=== PATIENT | male | born 1955 | race Caucasian/White ===

== ENCOUNTER 2016-11-26 10:42 | Emergency (ER) | payer MEDICARE, OTHER ==
[~2016-11-26] VITALS: Ht 167.6 cm; Wt 68.0 kg
[2016-11-26 12:04] LABS: BASOPHILS % 0.4 % (0.0-2.0); EOSINOPHILS % 1.1 % (0.0-5.0); HEMATOCRIT. 39.6 % (42.0-52.0); HEMOGLOBIN. 13.6 g/dL (14.0-18.0); LYMPHOCYTES % 14.2 % (20.0-50.0); MEAN CORPUSCULAR HEMOGLOBIN 29.7 pg (28.0-32.0); MEAN CORPUSCULAR VOLUME 86.5 fL (80.0-94.0); MEAN PLATELET VOLUME 7.2 fl (7.4-10.4); MONOCYTES % 6.3 % (2.0-8.0); PLATELET 218 x1000/uL (130-400); RED BLOOD CELL COUNT 4.58 mill/uL (4.7-6.1)
[2016-11-26 12:11] LABS: CARBON DIOXIDE 27 mEq/L (21-32); CHLORIDE 109 mEq/L (98-107)
[2016-11-26 14:00] VITALS: BP 120/76
== END 2016-11-26 14:48 | disposition home or self-care (01) ==
LOC: ER 10:42
DX: L03.116 Cellulitis of left lower limb (principal); I10 Essential (primary) hypertension; Z85.9 Personal history of malignant neoplasm, unspecified; Z98.890 Other specified postprocedural states
CPT/HCPCS: 36415; 80048; 85025; 93971; 99285

== ENCOUNTER 2018-05-03 07:30 | Emergency (ER) | payer MEDICARE, OTHER ==
[~2018-05-03] VITALS: Ht 167.6 cm; Wt 82.0 kg
[2018-05-03 10:18] LABS: BASOPHILS % 0.2 % (0.0-2.0); EOSINOPHILS % 1.4 % (0.0-5.0); HEMATOCRIT. 35.9 % (42.0-52.0); LYMPHOCYTES % 15.5 % (20.0-50.0); MEAN CORPUSCULAR VOLUME 83.7 fL (80.0-94.0); MEAN PLATELET VOLUME 6.5 fl (7.4-10.4); MONOCYTES % 7.6 % (2.0-8.0); NEUTROPHILS % 75.3 % (40.0-76.0); PLATELET 284 x1000/uL (130-400); RED BLOOD CELL COUNT 4.29 mill/uL (4.7-6.1); RED CELL DISTRIBUTION WIDTH 13.8 % (11.6-14.6)
[2018-05-03 10:23] LABS: CLARITY URINE CLEAR (CLEAR); COLOR URINE YELLOW (YELLOW); KETONES URINE NEGATIVE (NEGATIVE); LEUKOCYTE ESTERASE URINE NEGATIVE (NEGATIVE); NITRITE URINE NEGATIVE (NEGATIVE); OCCULT BLOOD URINE NEGATIVE (NEGATIVE); PROTEIN URINE NEGATIVE (NEGATIVE); SPECIFIC GRAVITY URINE 1.017 (1.005-1.030); UROBILINOGEN URINE 0.2 E.U./dL (0.2-1.0)
[2018-05-03 10:25] LABS: CHLORIDE 103 mEq/L (98-107)
[2018-05-03 14:18] VITALS: BP 140/76
== END 2018-05-03 14:19 | disposition home or self-care (01) ==
LOC: ER 07:30
DX: N43.3 Hydrocele, unspecified (principal); N50.89 Other specified disorders of the male genital organs; I10 Essential (primary) hypertension; Z85.9 Personal history of malignant neoplasm, unspecified; Z92.3 Personal history of irradiation; Z92.21 Personal history of antineoplastic chemotherapy; Z90.5 Acquired absence of kidney; Z87.891 Personal history of nicotine dependence
CPT/HCPCS: 36415; 71045; 76870; 93976; 99284

== ENCOUNTER 2018-05-08 07:16 | Inpatient (IN) | payer MEDICARE, MEDICAID ==
[~2018-05-08] VITALS: Ht 167.6 cm; Wt 62.6 kg
[2018-05-08] MEDS ORDERED: SODIUM CHLORIDE 0.9% 1,000 ML IV ONE (08:14)
[2018-05-08] MEDS ORDERED: KETOROLAC 30MG/ML VIAL IV STA (08:14)
[2018-05-08 08:45] LABS: HEMATOCRIT. 36.1 % (42.0-52.0); HEMOGLOBIN. 12.2 g/dL (14.0-18.0); MEAN CORPUSCULAR VOLUME 83.1 fL (80.0-94.0); MEAN PLATELET VOLUME 6.7 fl (7.4-10.4); PLATELET 325 x1000/uL (130-400); RED BLOOD CELL COUNT 4.34 mill/uL (4.7-6.1); RED CELL DISTRIBUTION WIDTH 13.7 % (11.6-14.6)
[2018-05-08 08:48] LABS: CHLORIDE 100 mEq/L (98-107)
[2018-05-08 08:50] LABS: PROTHROMBIN TIME 10.5 sec (9.1-11.1)
[2018-05-08 09:13] LABS: PLATELET ESTIMATE NORMAL
[2018-05-08] MEDS ORDERED: KCL 20MEQ/100ML PREMIX 100 ML IV ONE (09:15)
[2018-05-08 10:11] LABS: CLARITY URINE CLEAR (CLEAR); COLOR URINE YELLOW (YELLOW); KETONES URINE TRACE (NEGATIVE); LEUKOCYTE ESTERASE URINE NEGATIVE (NEGATIVE); NITRITE URINE NEGATIVE (NEGATIVE); OCCULT BLOOD URINE NEGATIVE (NEGATIVE); PROTEIN URINE TRACE (NEGATIVE); SPECIFIC GRAVITY URINE 1.029 (1.005-1.030); UROBILINOGEN URINE 0.2 E.U./dL (0.2-1.0)
[2018-05-08] MEDS ORDERED: DIPHENHYDRAMINE 50MG/ML VIAL IV PRN (11:45)
[2018-05-08] MEDS ORDERED: IPRATROPIUM/ALBUTEROL 0.5-3(2.5)MG/3ML NEB INH PRN (11:45)
[2018-05-08] MEDS ORDERED: ACETAMINOPHEN 650MG SUPP PR PRN (11:45)
[2018-05-08] MEDS ORDERED: MORPHINE SULFATE 4 MG/ML CPJ (NOT FOR IM USE) IV PRN (11:45)
[2018-05-08] MEDS ORDERED: LORAZEPAM 2MG/ML CPJ IV PRN (11:45)
[2018-05-08] MEDS ORDERED: ONDANSETRON HCL 4MG/2ML INJ IV PRN (11:45)
[2018-05-08] MEDS ORDERED: CEFTRIAXONE 1 G PREMIX 50 ML IV SCH (12:00)
[2018-05-08 12:15] LABS: HEMATOCRIT 35.2 % (42.0-52.0); HEMOGLOBIN 11.9 g/dL (14.0-18.0)
[2018-05-08 14:00] VITALS: BP 132/68
[2018-05-08 16:00] VITALS: BP 106/64
[2018-05-08] MEDS: PANTOPRAZOLE SODIUM 40 MG/VIAL IV SCH (16:17)
[2018-05-08] MEDS: DEXT 5%/0.45% NACL 1000ML 1,000 ML IV SCH (16:18)
[2018-05-08] MEDS ORDERED: BISACODYL 10MG SUPP PR NR (16:45)
[2018-05-08] MEDS ORDERED: DOCUSATE SODIUM 250MG CAPSULE PO PRN (16:45)
[2018-05-08] MEDS: CEFTRIAXONE 1 G PREMIX 50 ML IV SCH (17:16)
[2018-05-08] MEDS: METRONIDAZOLE 500 MG PREMIX 100 ML IV SCH (17:55)
[2018-05-09] VITALS: BP 109/65
[2018-05-09] MEDS: METRONIDAZOLE 500 MG PREMIX 100 ML IV SCH ×3 (01:43→18:07)
[2018-05-09 07:39] LABS: CHLORIDE 108 mEq/L (98-107)
[2018-05-09 07:44] LABS: BASOPHILS % 0.3 % (0.0-2.0); HEMATOCRIT. 29.8 % (42.0-52.0); HEMOGLOBIN. 10.2 g/dL (14.0-18.0); MEAN CORPUSCULAR HEMOGLOBIN 28.4 pg (28.0-32.0); MEAN CORPUSCULAR VOLUME 82.9 fL (80.0-94.0); MONOCYTES % 7.4 % (2.0-8.0); NEUTROPHILS % 67.3 % (40.0-76.0); PLATELET 259 x1000/uL (130-400); RED CELL DISTRIBUTION WIDTH 13.7 % (11.6-14.6)
[2018-05-09 07:51] LABS: HDL CHOLESTEROL 43 mg/dL (40-59); T4 FREE 1.65 ng/dL (0.76-1.46)
[2018-05-09 07:52] LABS: LDL CHOLESTEROL 45 mg/dL (5-100)
[2018-05-09 08:00] VITALS: BP 129/73
[2018-05-09] MEDS: DEXT 5%/0.45% NACL 1000ML 1,000 ML IV SCH (08:26)
[2018-05-09] MEDS: PANTOPRAZOLE SODIUM 40 MG/VIAL IV SCH (09:48)
[2018-05-09] MEDS: CEFTRIAXONE 1 G PREMIX 50 ML IV SCH (09:48)
[2018-05-09 10:36] LABS: *AMPHETAMINES SCREEN URINE NEGATIVE (NEGATIVE); *BARBITURATES SCREEN URINE NEGATIVE (NEGATIVE); *BENZODIAZEPINES SCREEN URINE NEGATIVE (NEGATIVE); *COCAINE SCREEN URINE NEGATIVE (NEGATIVE); METHADONE URINE SCREEN NEGATIVE (NEGATIVE)
[2018-05-09 10:37] LABS: CANNABINOID URINE SCREEN NEGATIVE (NEGATIVE); OPIATES URINE SCREEN NEGATIVE (NEGATIVE); PHENCYCLIDINE URINE SCREEN NEGATIVE (NEGATIVE)
[2018-05-09 12:00] VITALS: BP 124/78
[2018-05-09 16:00] VITALS: BP 136/71
[2018-05-09 20:00] VITALS: BP 112/65
[2018-05-10] VITALS: BP 124/72
[2018-05-10] MEDS: METRONIDAZOLE 500 MG PREMIX 100 ML IV SCH (01:16)
[2018-05-10 04:00] VITALS: BP 118/68
[2018-05-10 07:08] LABS: HEMATOCRIT 33.2 % (42.0-52.0); MEAN CORPUSCULAR HEMOGLOBIN 27.7 pg (28.0-32.0); MEAN CORPUSCULAR VOLUME 83.9 fL (80.0-94.0); PLATELET 258 x1000/uL (130-400); RED BLOOD CELL COUNT 3.96 mill/uL (4.7-6.1); RED CELL DISTRIBUTION WIDTH 14.4 % (11.6-14.6)
[2018-05-10 07:15] LABS: CHLORIDE 107 mEq/L (98-107)
[2018-05-10 08:00] VITALS: BP 127/84
[2018-05-10] MEDS ORDERED: DOCUSATE SODIUM 250MG CAPSULE PO SCH (09:00)
[2018-05-10] MEDS: CEFTRIAXONE 1 G PREMIX 50 ML IV SCH (09:17)
[2018-05-10] MEDS: PANTOPRAZOLE SODIUM 40 MG/VIAL IV SCH (09:17)
[2018-05-10] MEDS: DEXT 5%/0.45% NACL 1000ML 1,000 ML IV SCH (09:18)
[2018-05-10] MEDS ORDERED: POTASSIUM CHLORIDE 20MEQ TABLET SR PO NR (10:15)
[2018-05-10 12:00] VITALS: BP 119/62
[2018-05-10] MEDS ORDERED: METRONIDAZOLE 500 MG PREMIX 100 ML IV SCH (12:30)
[2018-05-10 16:00] VITALS: BP 134/80
[2018-05-10 19:21] VITALS: BP 134/80
== END 2018-05-10 20:03 | disposition home or self-care (01) | DRG 389 ==
LOC: ER 08:20 → 6EST 11:00 → ENRESERV 12:03
PROVIDERS: ADMIT Internal Medicine; ATTEND Internal Medicine
DX: K56.51 Intestinal adhesions [bands], with partial obstruction (principal); K92.2 Gastrointestinal hemorrhage, unspecified; L03.116 Cellulitis of left lower limb; E87.6 Hypokalemia; D64.9 Anemia, unspecified; R73.9 Hyperglycemia, unspecified; R80.9 Proteinuria, unspecified; I10 Essential (primary) hypertension; K80.20 Calculus of gallbladder without cholecystitis without obstruction; N43.3 Hydrocele, unspecified; Z85.038 Personal history of other malignant neoplasm of large intestine; Z93.3 Colostomy status; Z90.5 Acquired absence of kidney; Z85.048 Personal history of other malignant neoplasm of rectum, rectosigmoid junction, and anus
CPT/HCPCS: 36415; 71045; 73700; 74018; 74176; 80048; 80061; 80305; 82378; 83036; 84132; 84439; 84443; 85014; 85018; 85027; 93005; 93306; 93970; 96365; 96375; 97161; 99285; C9113; J0696; J1885; J3480; J3490; J7030